=== PATIENT | male | born 1965 | race American Indian/Alaskan Native ===

== ENCOUNTER 2020-09-28 10:59 | Emergency (ER) | payer BC ==
[2020-09-28] MEDS ORDERED: LIDOCAINE (2%) 20 MG/1 ML VIAL 20 ML MDV INFILTRATI ONE (12:28)
[2020-09-28] MEDS ORDERED: DIPHtheria,PERTUSSIS(ACELL),TETANUS VACCINE/PF 0.5 ML VIAL IM ONE (12:28)
[2020-09-28] MEDS ORDERED: ACETAMINOPHEN 500 MG TAB PO ONE (12:54)
--- NOTE | 2020-09-28 13:35 | XRay Report ---
XR hand 3+V LT INDICATION / CLINICAL INFORMATION: lac r/o foreign body. COMPARISON: None available. FINDINGS/IMPRESSION: No acute fracture or malalignment. No radiopaque foreign body identified. Signer Name: Lion Benton MD Signed: 09/28/2020 1:30 PM Workstation Name: [id number]
--- NOTE | 2020-09-28 13:47 | Emergency Department Report ---
ED Laceration HPI - HPI Chief Complaint: Extremity Injury, Upper Stated Complaint: LEFT HAND LACERATION Time Seen by Provider: 09/28/20 11:56 Occurred When: Today Location: Upper Extremity Severity: mild Tetanus Status: Not up to Date Laceration Symptoms: Yes Pain, No Foreign Body Sensation, No Numbness, No Weakness Other History: This is a 55-year-old male nontoxic, well nourished in appearance, no acute signs of distress presents to the ED with c/o of left hand laceration that occurred today. Patient stated that he moving furniture and glass table caused a laceration. Patient denies decreased sensation or range of motion. Patient stated bleeding is under control. Denies any numbness, tingling, fever, chills, nausea, vomiting, chest pain, shortness of breath, headache or stiff neck. Patient denies any allergies. Patient is that he is not up-to-date with tetanus. Patient stated past medical history includes hypertension but has been taken off his blood pressure medication by his PCP for years ago. ED Review of Systems ROS: Stated complaint: LEFT HAND LACERATION Other details as noted in HPI Comment: All other systems reviewed and negative Constitutional: denies: chills, fever Eyes: denies: eye pain, eye discharge, vision change ENT: denies: ear pain, throat pain Respiratory: denies: cough, shortness of breath, wheezing Cardiovascular: denies: chest pain, palpitations Endocrine: no symptoms reported Gastrointestinal: denies: abdominal pain, nausea, diarrhea Genitourinary: denies: urgency, dysuria Musculoskeletal: denies: back pain, joint swelling, arthralgia Skin: denies: rash, lesions Neurological: denies: headache, weakness, paresthesias Psychiatric: denies: anxiety, depression Hematological/Lymphatic: denies: easy bleeding, easy bruising ED Past Medical Hx - Past Medical History Previous Medical History?: Yes Hx Hypertension: Yes (not on meds) - Surgical History Past Surgical History?: No - Social History Smoking Status: Never Smoker Substance Use Type: Alcohol - Medications Home Medications: Home Medications Medication Instructions Recorded Confirmed Last Taken Type Sulfamethoxazole/Trimethoprim 1 each PO BID #14 tablet 09/28/20 Unknown Rx [Bactrim DS TAB] Laceration Physical Exam - Exam General: Vital signs noted. No distress. Alert and acting appropriately. Wound Length (cm): 4 (Left hand) Laceration Location: Upper Extremity Full Body Front + Back: 1 - Laceration here Laceration Exam: Yes Normal Distal CMS, No Foreign Body, No Exposed Tendon, Vessel, or Nerve, No Tendon Injury ED Course Vital Signs 09/28/20 09/28/20 11:28 12:58 Temperature 98.3 F Pulse Rate 94 H Respiratory 20 18 Rate Blood Pressure 150/111 O2 Sat by Pulse 98 Oximetry - Reevaluation(s) Reevaluation #1: 09/28/20 13:46 Patient is speaking in full sentences with no signs of distress noted. - Laceration /Wound Repair Left Hand Wound Location: upper extremity Wound Length (cm): 4 Wound's Depth, Shape: superficial Wound Explored: clean Irrigated w/ Saline (ccs): 40 Betadine Prep?: Yes Volume Anesthetic (ccs): 6 (2% lidocaine plain) Wound Repaired With: sutures Suture Size/Type: 4:0, proline Number of Sutures: 8 Layer Closure?: No Sterile Dressing Applied?: Yes Progress: Under sterile field, I used Betadine to clean the area. I then used 40 mL of normal saline to flush the area. I then used 2% lidocaine plain and injected 6 mL to the wound. I then used a 4-0 Prolene to suture the laceration. Number of stitches 8. I then applied a sterile 4 x 4 with tape. Minimal bleeding noted but is under control. Patient tolerated procedure well with no signs of distress. ED Medical Decision Making - Radiology Data XR hand 3+V LT INDICATION / CLINICAL INFORMATION: lac r/o foreign body. COMPARISON: None available. FINDINGS/IMPRESSION: No acute fracture or malalignment. No radiopaque foreign body identified. Signer Name: Lion Benton MD Signed: 09/28/2020 12:30 PM Workstation Name: [id number] - Medical Decision Making This is a 55-year-old male that presents with laceration. Patient is stable and was examined by me. Patient was educated on hypertension and lifestyle modification. According to ACEP: (1) in ED patients with asymptomatic markedly elevated blood pressure, routine screening for acute target organ injury (eg, serum creatinine, urinalysis, ECG) is not required. (1) In patients with asymptomatic markedly elevated blood pressure, routine ED medical intervention is not required. The laceration suturing has been performed and has been performed and patient tolerated well. A sterile dressing has been applied. Patient was educated on proper wound care. Patient is discharged with Bactrim. Patient was instructed to return in 10 days for suture removal. Patient was instructed to refer to Follow-up with a primary care doctor in 3-5 days or if symptoms worsen and continue return to emergency room as soon as possible. At time of discharge, the patient does not seem toxic or ill in appearance. No acute signs of distress noted. Patient agrees to discharge treatment plan of care. No further questions noted by the patient. Critical care attestation.: If time is entered above; I have spent that time in minutes in the direct care of this critically ill patient, excluding procedure time. ED Disposition Clinical Impression: Laceration of left hand Qualifiers: Encounter type: initial encounter Foreign body presence: without foreign body Qualified Code(s): S61.412A - Laceration without foreign body of left hand, initial encounter Disposition: DC-01 TO HOME OR SELFCARE Is pt being admited?: No Does the pt Need Aspirin: No Condition: Stable Instructions: Laceration Care, Adult, [id number] Additional Instructions: Follow-up with a primary care doctor in 3-5 days or if symptoms worsen and continue return to emergency room as soon as possible. Return in 10 days for suture removal. No strenuous physical activity that extremity until suture removal. Prescriptions: Sulfamethoxazole/Trimethoprim [Bactrim DS TAB] 1 each PO BID #14 tablet Referrals: CHARITY RAZA MD [Primary Care Provider] - 3-5 Days YADI DOMINGUEZ MD [Staff Physician] - 3-5 Days Forms: Work/School Release Form(ED) Time of Disposition: 14:15
[2020-09-28 14:46] VITALS: BP 168/98
== END 2020-09-28 14:45 | disposition home or self-care (01) ==
LOC: ED 10:59
DX: S61.412A Laceration without foreign body of left hand, initial encounter (principal); I10 Essential (primary) hypertension; Z79.899 Other long term (current) drug therapy; W25.XXXA Contact with sharp glass, initial encounter; Y93.89 Activity, other specified; Y92.89 Other specified places as the place of occurrence of the external cause; Y99.8 Other external cause status
CPT/HCPCS: 90471; 90715

== ENCOUNTER 2020-10-21 15:00 | Emergency (ER) | payer BC ==
[2020-10-21 15:27] VITALS: BP 159/95
--- NOTE | 2020-10-21 15:33 | Emergency Department Report ---
ED General Adult HPI - General Chief complaint: Skin/Abscess/Foreign Body Stated complaint: STITCHES REMOVED Time Seen by Provider: 10/21/20 15:28 Source: patient Mode of arrival: Ambulatory Limitations: No Limitations - Related Data Previous Rx's Medication Instructions Recorded Last Taken Type Sulfamethoxazole/Trimethoprim 1 each PO BID #14 tablet 09/28/20 Unknown Rx [Bactrim DS TAB] Allergies Allergy/AdvReac Type Severity Reaction Status Date / Time No Known Allergies Allergy Verified 02/15/16 01:22 ED Review of Systems ROS: Stated complaint: STITCHES REMOVED Other details as noted in HPI ED Past Medical Hx - Past Medical History Hx Hypertension: Yes (not on meds) - Social History Smoking Status: Never Smoker Substance Use Type: Alcohol - Medications Home Medications: Home Medications Medication Instructions Recorded Confirmed Last Taken Type Sulfamethoxazole/Trimethoprim 1 each PO BID #14 tablet 09/28/20 Unknown Rx [Bactrim DS TAB] ED Physical Exam - General Limitations: No Limitations ED Course Vital Signs 10/21/20 15:26 Temperature 98.1 F Pulse Rate 108 H Respiratory 17 Rate Blood Pressure 159/95 [Right] O2 Sat by Pulse 100 Oximetry Critical care attestation.: If time is entered above; I have spent that time in minutes in the direct care of this critically ill patient, excluding procedure time. ED Disposition Clinical Impression: Visit for suture removal Disposition: DC-01 TO HOME OR SELFCARE Is pt being admited?: No Condition: Stable Instructions: Wound Closure Removal, Care After Referrals: [facility] [Provider Group] - 3-5 Days
== END 2020-10-21 15:40 | disposition home or self-care (01) ==
LOC: ED 15:00
DX: Z48.02 Encounter for removal of sutures (principal); I10 Essential (primary) hypertension; Z79.899 Other long term (current) drug therapy

== ENCOUNTER 2021-01-03 15:35 | Emergency (ER) | payer BC ==
[2021-01-03 17:25] VITALS: BP 160/94
--- NOTE | 2021-01-03 17:33 | Emergency Department Report ---
ED General Adult HPI - General Chief complaint: High BP Stated complaint: ELEVATED BLOOD PRESSURE Time Seen by Provider: 01/03/21 17:26 Source: patient Mode of arrival: Ambulatory Limitations: No Limitations - History of Present Illness Initial comments: Patient is a 55-year-old male presents emergency room complaints of elevated blood pressure. Patient states that he has been having lightheadedness since running out of his blood pressure medication. He states he has been out for approximately a week. He states he takes amlodipine 5 mg daily that he was prescribed by another emergency department. He states that he does not believe it is completely lowering his blood pressure. He has not followed up with a primary care doctor. He denies any headache, vision changes, numbness, weakness, chest pain, shortness of breath, leg swelling. No other past medical history. No allergies to medications. - Related Data Previous Rx's Medication Instructions Recorded Last Taken Type Sulfamethoxazole/Trimethoprim 1 each PO BID #14 tablet 09/28/20 Unknown Rx [Bactrim DS TAB] amLODIPine 10 mg PO DAILY #30 tab 01/03/21 Unknown Rx Allergies Allergy/AdvReac Type Severity Reaction Status Date / Time No Known Allergies Allergy Verified 02/15/16 01:22 ED Review of Systems ROS: Stated complaint: ELEVATED BLOOD PRESSURE Other details as noted in HPI Comment: All other systems reviewed and negative ED Past Medical Hx - Past Medical History Previous Medical History?: Yes Hx Hypertension: Yes - Surgical History Past Surgical History?: No - Social History Smoking Status: Never Smoker Substance Use Type: Alcohol - Medications Home Medications: Home Medications Medication Instructions Recorded Confirmed Last Taken Type Sulfamethoxazole/Trimethoprim 1 each PO BID #14 tablet 09/28/20 Unknown Rx [Bactrim DS TAB] amLODIPine 10 mg PO DAILY #30 tab 01/03/21 Unknown Rx ED Physical Exam - General Limitations: No Limitations General appearance: alert, in no apparent distress - Head Head exam: Present: atraumatic, normocephalic - Eye Eye exam: Present: normal appearance, PERRL, EOMI - ENT ENT exam: Present: mucous membranes moist - Respiratory Respiratory exam: Present: normal lung sounds bilaterally. Absent: respiratory distress, wheezes, rales, rhonchi, stridor, chest wall tenderness, accessory muscle use, decreased breath sounds, prolonged expiratory - Cardiovascular Cardiovascular Exam: Present: regular rate, normal rhythm, normal heart sounds. Absent: systolic murmur, diastolic murmur, rubs, gallop - Neurological Exam Neurological exam: Present: alert, oriented X3, CN II-XII intact, normal gait. Absent: motor sensory deficit - Psychiatric Psychiatric exam: Present: normal affect, normal mood - Skin Skin exam: Present: warm, dry, intact ED Course Vital Signs 01/03/21 17:17 Temperature 98.6 F Pulse Rate 79 Respiratory 18 Rate Blood Pressure 160/94 O2 Sat by Pulse 99 Oximetry ED Medical Decision Making - Lab Data Result diagrams: 01/03/21 17:40 01/03/21 17:40 Lab Results 01/03/21 01/03/21 01/03/21 Range/Units 17:40 17:40 Unknown WBC 7.9 (4.5-11.0) K/mm3 RBC 4.93 (3.65-5.03) M/mm3 Hgb 13.1 (11.8-15.2) gm/dl Hct 39.8 (35.5-45.6) % MCV 81 L (84-94) fl MCH 27 L (28-32) pg MCHC 33 (32-34) % RDW 17.4 H (13.2-15.2) % Plt Count 264 (140-440) K/mm3 Lymph % (Auto) 33.6 (13.4-35.0) % [facility] % (Auto) 10.4 H (0.0-7.3) % Eos % (Auto) 3.1 (0.0-4.3) % Baso % (Auto) 0.6 (0.0-1.8) % Lymph # (Auto) 2.7 (1.2-5.4) K/mm3 [facility] # (Auto) 0.8 (0.0-0.8) K/mm3 Eos # (Auto) 0.2 (0.0-0.4) K/mm3 Baso # (Auto) 0.0 (0.0-0.1) K/mm3 Seg Neutrophils % 52.3 (40.0-70.0) % Seg Neutrophils # 4.1 (1.8-7.7) K/mm3 Sodium 139 (137-145) mmol/L Potassium 3.6 (3.6-5.0) mmol/L Chloride 100.1 (98-107) mmol/L Carbon Dioxide 28 (22-30) mmol/L Anion Gap 15 mmol/L BUN 11 (9-20) mg/dL Creatinine 0.8 (0.8-1.3) mg/dL Estimated GFR > 60 ml/min BUN/Creatinine Ratio 14 % Glucose 82 (75-100) mg/dL Calcium 8.9 (8.4-10.2) mg/dL Total Bilirubin 0.20 (0.1-1.2) mg/dL AST 20 (5-40) units/L ALT 19 (7-56) units/L Alkaline Phosphatase 90 (35-129) units/L Troponin T < 0.010 (0.00-0.029) ng/mL Total Protein 7.6 (6.3-8.2) g/dL Albumin 4.2 (3.9-5) g/dL Albumin/Globulin Ratio 1.2 % Urine Color Straw (Yellow) Urine Turbidity Clear (Clear) Urine pH 6.0 (5.0-7.0) Ur Specific [place] 1.011 (1.003-1.030) Urine Protein <15 mg/dl (Negative) mg/dL Urine Glucose (UA) Neg (Negative) mg/dL Urine Ketones Neg (Negative) mg/dL Urine Blood Neg (Negative) Urine Nitrite Neg (Negative) Urine Bilirubin Neg (Negative) Urine Urobilinogen < 2.0 (<2.0) mg/dL Ur Leukocyte Esterase Neg (Negative) Urine WBC (Auto) < 1.0 (0.0-6.0) /HPF Urine RBC (Auto) < 1.0 (0.0-6.0) /HPF - EKG Data EKG shows normal: sinus rhythm, axis, intervals, QRS complexes, ST-T waves Rate: normal - Medical Decision Making Patient is a 55-year-old male presents emergency room complaints of elevated blood pressure. Patient states that he has been having lightheadedness since running out of his blood pressure medication. He states he has been out for approximately a week. He states he takes amlodipine 5 mg daily that he was prescribed by another emergency department. He states that he does not believe it is completely lowering his blood pressure. He has not followed up with a primary care doctor. He denies any headache, vision changes, numbness, weaknes s, chest pain, shortness of breath, leg swelling. No other past medical history. No allergies to medications. Vitals with elevated blood pressure around 160 systolic. Patient has no focal neuro deficits on exam. EKG is within normal limits. Labs are normal. UA is within normal limits, no prot einuria. Patient will be given 10 mg of amlodipine daily, discussed lifestyle modifications, discussed keeping a blood pressure log, discussed the importance of primary care follow-up, discussed return precautions. Advised patient Please take medication as prescribed. Increase your water intake. Eat a low- sodium/low salt diet. Incorporate 30 to 60 minutes of exercise daily. Follow- up with your primary care doctor. Please keep a blood pressure log and take this to the primary care doctor. Return to emergency room for any new or worsening symptoms. Critical care attestation.: If time is entered above; I have spent that time in minutes in the direct care of this critically ill patient, excluding procedure time. ED Disposition Clinical Impression: Lightheaded, Elevated blood pressure reading Disposition: DC- TO HOME OR SELFCARE Is pt being admited?: No Does the pt Need Aspirin: No Condition: Stable Instructions: Low-Sodium Eating Plan, Managing Your Hypertension Additional Instructions: Please take medication as prescribed. Increase your water intake. Eat a low- sodium/low salt diet. Incorporate 30 to 60 minutes of exercise daily. Follow- up with your primary care doctor. Please keep a blood pressure log and take this to the primary care doctor. Return to emergency room for any new or worsening symptoms. Prescriptions: amLODIPine 10 mg PO DAILY #30 tab Referrals: YADI DOMINGUEZ MD [Staff Physician] - 3-5 Days ANTON KILLIAN MD [Staff Physician] - 3-5 Days KAYODE BARBA MD [Staff Physician] - 3-5 Days Time of Disposition: 18:17 Print Language: BELARUSIAN
[2021-01-03 18:03] LABS: Bilirubin,Urine NEG (Negative); Blood,Urine NEG (Negative); Color,Urine Straw (Yellow); Protein,Urine <15 mg/dL mg/dL (Negative); RBC,Urine < 1.0 /HPF (0.0-6.0); Urobilinogen,Urine < 2.0 mg/dL (<2.0)
[2021-01-03 18:03] LABS: Basophils % (Auto) 0.6 % (0.0-1.8); Eosinophils # (Auto) 0.2 K/mm3 (0.0-0.4); Eosinophils % (Auto) 3.1 % (0.0-4.3); Hematocrit 39.8 % (35.5-45.6); Hemoglobin 13.1 gm/dl (11.8-15.2); Lymphocytes # (Auto) 2.7 K/mm3 (1.2-5.4); Lymphocytes % (Auto) 33.6 % (13.4-35.0); Mean Corpuscular HGB Conc 33 % (32-34); Mean Corpuscular Volume 81 fl (84-94); Monocytes # (Auto) 0.8 K/mm3 (0.0-0.8); Monocytes % (Auto) 10.4 % (0.0-7.3); Platelet Count 264 K/mm3 (140-440); Red Blood Count 4.93 M/mm3 (3.65-5.03); Red Cell Distribution Width 17.4 % (13.2-15.2)
[2021-01-03 18:12] LABS: WBC,Urine < 1.0 /HPF (0.0-6.0)
[2021-01-03 18:15] LABS: Alanine Aminotransferase 19 units/L (7-56); Albumin 4.2 g/dL (3.9-5); BUN/Creatinine Ratio 14; Blood Urea Nitrogen 11 mg/dL (9-20); Calcium 8.9 mg/dL (8.4-10.2); Hemolysis Index 10
--- NOTE | 2021-01-08 09:40 | Electrocardiograph Report ---
[facility] Test Date: 2021-01-03 Test Time: 17:38:39 Pat Name: SIENNA POLLACK Department: Room: Gender: M Foundation Maker: MITZI : 1965 Requested By: ANA PAULA FOSTER Order Number: [id number] Reading MD: Shmuel Knapp Measurements Intervals [place] Rate: 75 P: 69 RI: 183 QRS: 30 QRSD: 98 T: 19 QT: 406 QTc: 455 Interpretive Statements Sinus rhythm Probable left atrial enlargement No previous ECG available for comparison Electronically Signed On 01-08-2021 9:39:49 EDT by Shmuel Knapp
== END 2021-01-03 19:22 | disposition home or self-care (01) ==
LOC: ED 15:35
DX: R42 Dizziness and giddiness (principal); I10 Essential (primary) hypertension; Z79.899 Other long term (current) drug therapy
CPT/HCPCS: 36415; 80053; 81001; 84484; 85025; 93005

== ENCOUNTER 2021-07-06 08:12 | Emergency (ER) | payer BC ==
[2021-07-06] MEDS ORDERED: ACETAMINOPHEN 500 MG TAB PO ONE (10:32)
[2021-07-06] MEDS ORDERED: IBUPROFEN 600 MG TAB PO ONE (10:32)
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
[2021-07-06 11:46] VITALS: BP 149/92
== END 2021-07-06 11:50 | disposition home or self-care (01) ==
LOC: ED 08:12
DX: S39.012A Strain of muscle, fascia and tendon of lower back, initial encounter (principal); S80.02XA Contusion of left knee, initial encounter; F10.20 Alcohol dependence, uncomplicated; V49.49XA Driver injured in collision with other motor vehicles in traffic accident, initial encounter; Y93.89 Activity, other specified; Y92.89 Other specified places as the place of occurrence of the external cause; Y99.8 Other external cause status
CPT/HCPCS: 72100; 99283